=== PATIENT | female | born 1985 | race African-American/Black ===

== ENCOUNTER → 2021-10-16 | Outpatient (CLI) | payer BC ==
--- NOTE | 2021-10-18 11:36 | MM ---
Reason for exam: screening (asymptomatic). Physical Findings: A clinical breast exam by your physician is recommended on an annual basis and results should be correlated with mammographic findings. MG Screening Mammo w CAD Bilateral CC and MLO view(s) were taken. The breast tissue is heterogeneously dense. This may lower the sensitivity of mammography. Superior asymmetric density left MLO may be superimposition shadow. Further evaluation recommended. Otherwise, no discrete abnormality. ASSESSMENT: Incomplete: need additional imaging evaluation, BI-RAD 0 RECOMMENDATION: Special view mammogram of the left breast. (3D) If lesion persists on supplemental views, image directed ultrasound is recommended. [facility] will attempt to contact patient to return for supplemental views and ultrasound if indicated.
== END | disposition home or self-care (01) ==
LOC: RADMAMWWP 14:19
PROVIDERS: ATTEND Internal Medicine Geriatric Medicine
DX: Z12.31 Encounter for screening mammogram for malignant neoplasm of breast (principal)
CPT/HCPCS: 77067

== ENCOUNTER → 2021-10-29 | Outpatient (CLI) | payer BC ==
--- NOTE | 2021-10-31 12:46 | MM ---
Reason for exam: additional evaluation requested from abnormal screening. Last mammogram was performed less than 1 month ago. Physical Findings: Breast exam preformed at baseline screening. MG Work Up Mamm w CAD LT LM and spot compression MLO view(s) were taken of the left breast. Prior study comparison: October 16, 2021, bilateral MG screening mammo w CAD. The breast tissue is heterogeneously dense. This may lower the sensitivity of mammography. The superior asymmetric density disperses on additional views. These results were verbally communicated with the patient and result sheet given to the patient on 10/29/21. ASSESSMENT: Negative, BI-RAD 1 RECOMMENDATION: Routine screening mammogram of both breasts at age 39.
== END | disposition home or self-care (01) ==
LOC: RADMAMWWP 14:47
PROVIDERS: ATTEND Internal Medicine Geriatric Medicine
DX: R92.8 Other abnormal and inconclusive findings on diagnostic imaging of breast (principal)
CPT/HCPCS: 77065

== ENCOUNTER → 2024-10-07 | Outpatient (CLI) | payer BC ==
--- NOTE | 2024-10-07 16:16 | US ---
EXAMINATION TYPE: US pelvic complete DATE OF EXAM: 10/07/2024 COMPARISON: NONE CLINICAL INDICATION: Female, 39 years old with history of D25.9 LEIOMYOMA OF UTERUS, UNSPECIFIED; kno wn fibroids, no current symptoms TECHNIQUE: TA. Transabdominal grayscale sonographic images of the pelvis were acquired. FINDINGS: Date of LMP: unknown EXAM MEASUREMENTS: Uterus: 9.7 x 5.4 x 3.6 cm Endometrial Stripe: 1.2 cm Right Ovary: 2.1 x 1.8 x 1.8 cm Left Ovary: 3.3 x 3.1 x 2.3 cm 1. Uterus: Anteverted 2 fibroids noted, fundal fibroid = 3.2 x 3.1 x 2.5cm, left posterior myometr ium = 2.9 x 2.6 x 2.0cm 2. Endometrium: wnl 3. Right Ovary: wnl 4. Left Ovary: wnl 5. Bilateral Adnexa: wnl 6. Posterior cul-de-sac: wnl IMPRESSION: 1. No evidence for acute process. 2. Endometrium within normal limits for thickness. 3. Fibroid uterus. [facility], , 10/07/2024 4:13 PM
== END | disposition home or self-care (01) ==
LOC: RADUSWWP 15:16
PROVIDERS: ATTEND Internal Medicine Geriatric Medicine
DX: D25.9 Leiomyoma of uterus, unspecified (principal)
CPT/HCPCS: 76856

== ENCOUNTER → 2025-02-21 | Outpatient (CLI) | payer BC ==
--- NOTE | 2025-02-21 08:09 | MM ---
Reason for Exam: Screening (asymptomatic). Last mammogram was performed 3 year(s) and 5 month(s) ago. Patient History: Menarche at age 10. First Full-Term at age 29. Late child-bearing (after 29). Premenopausal. Last menstrual period: 02/11/2025 Risk Values: Zoya 5 year model risk: 0.6%. NCI Lifetime model risk: 9.6%. Prior Study Comparison: 10/16/2021 Bilateral Screening Mammogram, [facility]. 10/29/2021 Left Diagnostic Mammogram, [facility]. Tissue Density: The breasts are heterogeneously dense, which may obscure small masses. Findings: Analyzed By CAD. Right breast: There is no suspicious group of microcalcifications or new suspicious mass. Left breast: There is no suspicious group of microcalcifications or new suspicious mass. Overall Assessment: Negative, BI-RAD 1 Management: Screening Mammogram of both breasts in [address] [facility] will attempt to contact patient to return for supplemental views and ultrasound if indicated. Patient should continue monthly self-breast exams. A clinical breast exam by your physician is recommended on an annual basis. This exam should not preclude additional follow-up of suspicious palpable abnormalities. Note on Zoya scores and lifetime risk: 1. A Zoya score greater than 3% is considered moderate risk. If this is the case, consider specialist referral to assess eligibility for a risk reducing agent. 2. If overall lifetime risk for the development of breast cancer is 20% or higher, the patient may qualify for future screening with alternating mammogram and breast MRI. [facility], , 02/21/2025 8:06 AM. Electronically signed and approved by: Ross Burroughs DO
== END | disposition home or self-care (01) ==
LOC: RADMAMWWP 07:11
PROVIDERS: ATTEND Internal Medicine Geriatric Medicine
DX: Z12.31 Encounter for screening mammogram for malignant neoplasm of breast (principal); R92.333 Mammographic heterogeneous density, bilateral breasts
CPT/HCPCS: 77063; 77067